=== PATIENT | male | born 1950 | race Caucasian/White ===

== ENCOUNTER → 2019-07-05 | Outpatient (CLI) | payer MEDICARE | END | disposition home or self-care (01) | LOC: ROC 06-22 14:34 | PROVIDERS: ATTEND Radiology Radiation Oncology | DX: C09.9 Malignant neoplasm of tonsil, unspecified (principal); C79.51 Secondary malignant neoplasm of bone | CPT/HCPCS: G0463 ==

== ENCOUNTER 2019-07-12 11:23 | Outpatient (CLI) | payer MEDICARE ==
[2019-07-12] MEDS ORDERED: GADOTERATE 7.5 MMOL/15 ML SYR ONE (13:23)
== END 2019-07-12 23:59 | disposition home or self-care (01) ==
LOC: CFH 11:23 → EDSTATUS 12:15 → CFH 23:59
PROVIDERS: ATTEND Radiology Radiation Oncology
DX: M47.812 Spondylosis without myelopathy or radiculopathy, cervical region (principal); C79.51 Secondary malignant neoplasm of bone
CPT/HCPCS: 70553; 72156; A9575

== ENCOUNTER → 2019-09-06 | Outpatient (CLI) | payer MEDICARE | END | disposition home or self-care (01) | LOC: ROC 09:08 | PROVIDERS: ATTEND Radiology Radiation Oncology | DX: C09.9 Malignant neoplasm of tonsil, unspecified (principal) | CPT/HCPCS: G0463 ==

== ENCOUNTER 2019-09-13 07:55 | Outpatient (CLI) | payer MEDICARE | END 2019-09-13 23:59 | disposition home or self-care (01) | LOC: ROC 07:55 | PROVIDERS: ATTEND Radiology Radiation Oncology | DX: C79.51 Secondary malignant neoplasm of bone (principal) | CPT/HCPCS: G0463 ==

== ENCOUNTER 2019-12-13 07:38 | Outpatient (CLI) | payer MEDICARE | END 2019-12-13 23:59 | disposition home or self-care (01) | LOC: ROC 07:38 | PROVIDERS: ATTEND Radiology Radiation Oncology | DX: C79.51 Secondary malignant neoplasm of bone (principal); C09.9 Malignant neoplasm of tonsil, unspecified | CPT/HCPCS: G0463 ==

== ENCOUNTER → 2020-03-20 | Outpatient (CLI) | payer MEDICARE | END | disposition home or self-care (01) | LOC: ROC 07:56 | PROVIDERS: ATTEND Radiology Radiation Oncology | DX: C09.9 Malignant neoplasm of tonsil, unspecified (principal) | CPT/HCPCS: G0463 ==

== ENCOUNTER → 2020-07-10 | Outpatient (CLI) | payer MEDICARE | END | disposition home or self-care (01) | LOC: ROC 07:19 | PROVIDERS: ATTEND Radiology Radiation Oncology | DX: Z08 Encounter for follow-up examination after completed treatment for malignant neoplasm (principal); C79.51 Secondary malignant neoplasm of bone | CPT/HCPCS: G0463 ==